=== PATIENT | male | born 1985 | race Two or more races ===

== ENCOUNTER 2016-08-12 21:30 | Emergency (ER) | payer OTHER ==
[~2016-08-12] VITALS: Ht 165.1 cm; Wt 72.6 kg
[2016-08-12 21:31] VITALS: BP 124/77
[2016-08-12] MEDS ORDERED: AMPHET ASP/AMPHET/D-AMPHET 10 MG TABLET PO SCH (22:00)
--- NOTE | 2016-08-12 22:14 | NUR ---
ADDERALL NOT AVAILABLE AT THIS TIME PER [facility] [employer]. NO ADDERALL IN ER PYXIS; IT IS AVAILABLE IN GEROPSYCH PYXIS BUT WHEN NSG SUP ATTEMPTED TO OVERRIDE 5MG, IT WAS "NOT OVERRIDEABLE". NOTIFIED. PT WAS INFORMED OF THIS AND BECAME ANGRY. REFUSED TO SIGN DISCAHRGE PAPERS OR CONSENT TO DISCHARGE VITALS. ESCORTED FROM ER BY [employer].
== END 2016-08-12 22:16 ==
LOC: ER 21:32
DX: R45.851 Suicidal ideations (principal); R45.850 Homicidal ideations; F90.9 Attention-deficit hyperactivity disorder, unspecified type
CPT/HCPCS: 99283; A4606; Z7610